=== PATIENT | male | born 1985 ===

== ENCOUNTER 2021-10-01 12:50 | Emergency (ER) | payer OTHER ==
[~2021-10-01] VITALS: Ht 177.8 cm; Wt 83.9 kg
[~2021-10-01 12:50] MED LIST: CRUTCH2 USE; HYDACE5 PO; IBUP200 PO; NAPR500 PO
== END 2021-10-01 13:20 | disposition home or self-care (01) ==
LOC: ER 12:50
DX: S51.812A Laceration without foreign body of left forearm, initial encounter (principal); W26.0XXA Contact with knife, initial encounter
CPT/HCPCS: 12001; 99282-25